=== PATIENT | female | born 1945 | race Caucasian/White ===

== ENCOUNTER 2016-11-23 22:17 | Emergency (ER) | payer SELFPAY ==
[~2016-11-23] VITALS: Ht 165.1 cm; Wt 70.0 kg
[2016-11-23] MEDS ORDERED: TETANUS/DIPHTHERIA TOXOID ADULT 0.5 ML VIAL IM ONE (22:45)
[2016-11-23] MEDS ORDERED: LIDOCAINE 1%/EPINEPHrine 1:100,000 SOLN 20 ML VIAL INFIL ONE (22:45)
--- NOTE | 2016-11-23 23:10 | PD ---
HPI Chief Complaint: Fall Time Seen by Provider: 23:06 Travel History International Travel<30 days: No Contact w/Intl Traveler<30days: No Traveled to known affect area: No History of Present Illness HPI 70-year-old female that had a mechanical fall that presents to the ED for evaluation of head injury and laceration. Patient reports that she had some alcohol today and she went to take a shower and when she came out of the shower she accidentally slipped on wet floor and hit her head on the glass door. She had laceration to the area and she could not stop the bleeding so does what she called the ambulance who brought her here. She denies losing consciousness. She denies any blood thinners. No chest pain or shortness of breath. No back or neck pain. No numbness, tilling, weakness. No abdominal pain. Per patient she did not lose consciousness. Per patient her pain is 2 out of 10 on the laceration which appears to be on the right head. She denies any other injuries. Patient was brought by ambulance for evaluation of this. No allergies to medication. [facility] Social History Alcohol Use: Yes Tobacco Use: No Substance Use: No Allergies-Medications (Allergen,Severity, Reaction): Coded Allergies: No Known Allergies (Unverified , 11/23/16) Review of Systems Except as stated in HPI: all other systems reviewed are Neg Physical Exam Narrative GENERAL: SKIN: Warm and dry. Patient has a superficial 4 cm laceration that is linear and horizontal on the right temporal area. Some arterial bleeding noted but minimal. No other laceration or injuries noted. Patient does have a hematoma to the forehead. HEAD: Atraumatic. Normocephalic. EYES: Pupils equal and round 4 mm reactive and accommodation. No scleral icterus. No injection or drainage. ENT: No nasal bleeding or discharge. Mucous membranes pink and moist. Tongue is midline. No uvula deviation. NECK: Trachea midline. No JVD. CARDIOVASCULAR: Regular rate and rhythm. No murmurs, S3, S4. RESPIRATORY: No accessory muscle use. Clear to auscultation. Breath sounds equal bilaterally. GASTROINTESTINAL: Abdomen soft, non-tender, nondistended. Hepatic and splenic margins not palpable. MUSCULOSKELETAL: Extremities without clubbing, cyanosis, or edema. No obvious deformities. Full range of motion of the upper and lower extremities bilaterally. 2+ pulses bilaterally. No cervical, thoracic, lumbar spine tenderness to palpation. NEUROLOGICAL: Awake and alert. No obvious cranial nerve deficits. Motor grossly within normal limits. Five out of 5 muscle strength in the arms and legs. Normal speech. PSYCHIATRIC: Appropriate mood and affect; insight and judgment normal. Data Data Orders Ct Brain W/O Iv Contrast(Rout) (11/23/16 22:36) Wound Care (11/23/16 22:36) Tetanus/Diphtheria Tox Adult (Tetanus/Di (11/23/16 22:45) Lidocai-Epi 1%-1:100,000 Inj (Xylocaine- (11/23/16 22:45) MDM Medical Decision Making Medical Screen Exam Complete: Yes Emergency Medical Condition: Yes Medical Record Reviewed: Yes Differential Diagnosis Laceration versus abrasion versus skin tear versus head injury versus contusion Narrative Course 70-year-old female that presents to the ED for evaluation of head injury. Patient was properly examined and was found to have signs and symptoms consistent appears to be head injury with laceration. After explained procedure to the patient she agreed to it laceration was repaired as stated in procedure note by me. Bleeding was stopped by me. Patient was told to get ernie and sutures removed in one week. Case was signed out to my attending pending CT scanning. Procedures Procedure Narrative LACERATION LOCATION: right temporal head LENGTH: 4 cm NUMBER OF STITCHES/ERNIE: 3 sutures, 7 ernie REPAIR: The area of the laceration was prepped with Betadine and sterilely draped. The laceration was infiltrated with 1% Xylocaine. The wound was copiously irrigated and explored without evidence of foreign body, tendon injury or neurovascular injury, she did had a small arterial bleed which was stopped with sutures. The wound was closed using sterile stapler and sutures. This was a 1 layer repair. A sterile dressing was applied. The patient was advised to keep the dressing clean and dry. Patient tolerated the procedure well. Ac Raya November 23, 2016 23:10
[2016-11-23] MEDS ORDERED: IBUP400T20 PO (23:32)
[2016-11-23] MEDS ORDERED: IBUP200T2 PO (23:32)
[2016-11-23 23:34] VITALS: BP 157/87; PULSE 87; RESP 20; O2SAT 100
[2016-11-23 23:37] VITALS: BP 157/87; PULSE 85; RESP 20; TEMP 97.9; O2SAT 100
[2016-11-23 23:47] VITALS: BP 108/65; PULSE 83; RESP 20; O2SAT 98
--- NOTE | 2016-11-24 00:09 | PD ---
Physical Exam Date Seen by Provider: November 24, 2016 Narrative Patient presents status post a mechanical fall with a laceration to her scalp. Data Data Last Documented VS Vital Signs Date Time Temp Pulse Resp B/P Pulse Ox O2 Delivery O2 Flow Rate FiO2 11/23/16 23:47 83 20 108/65 98 Room Air 11/23/16 23:[address] Brain W/O Iv Contrast(Rout) (11/23/16 22:36) Wound Care (11/23/16 22:36) Tetanus/Diphtheria Tox Adult (Tetanus/Di (11/23/16 22:45) Lidocai-Epi 1%-1:100,000 Inj (Xylocaine- (11/23/16 22:45) MDM Supervised Visit with CYNTHIA: Yes Narrative Course Laceration was repaired by the PA. CT was ordered. Patient refuses CT. She states that she did not lose consciousness. She is awake and alert and fully oriented. She will be discharged to home. Diagnosis Primary Impression: Scalp laceration Qualified Code: S01.01XD - Scalp laceration, subsequent encounter Patient Instructions: General Instructions, Laceration (DC) Additional Instruction: Clean the wound daily with mild shampoo. Apply a thin layer of Neosporin ointment after you wash it. See your doctor in 7 days for suture removal. Seek care sooner for redness, drainage, warmth, unusual pain. Disposition: 01 DISCHARGE HOME Condition: Stable Mariaa Meyer MD November 24, 2016 00:09
== END 2016-11-24 03:34 | disposition home or self-care (01) ==
LOC: NEPE 22:17
DX: S01.01XA Laceration without foreign body of scalp, initial encounter (principal); S00.83XA Contusion of other part of head, initial encounter; Z23 Encounter for immunization; W01.198A Fall on same level from slipping, tripping and stumbling with subsequent striking against other object, initial encounter; Y93.E1 Activity, personal bathing and showering
CPT/HCPCS: 12002; 90471; 90714